=== PATIENT | female | born 1980 | race Caucasian/White ===

== ENCOUNTER 2018-05-21 17:55 | Emergency (ER) | payer OTHER, BC ==
[~2018-05-21] VITALS: Ht 175.3 cm; Wt 112.0 kg
[~2018-05-21 17:55] MED LIST: AMOXICILLIN500 MG OR; BENADRYL 50MG C50 MG PO; CORTISPORIN OTI10 M1 OT; FLEXERIL PO; LORTAB 5 OR; MEDDOSEPAK PO; NAPROSYN500 MG PO; NO HOME MEDS; PEPCID20 MG PO
[2018-05-21] MEDS ORDERED: MOBIC7.5 M1 PO (18:04)
[2018-05-21] MEDS ORDERED: MOTRIN400 MG PO (18:16)
[2018-05-21 19:06] VITALS: BP 144/77
[2018-05-21] MEDS ORDERED: NAPROSYN500 MG PO (19:07)
== END 2018-05-21 19:24 | disposition home or self-care (01) | DRG 605 ==
LOC: ED 17:55
DX: S80.212A Abrasion, left knee, initial encounter (principal); S90.01XA Contusion of right ankle, initial encounter; S39.012A Strain of muscle, fascia and tendon of lower back, initial encounter; W01.0XXA Fall on same level from slipping, tripping and stumbling without subsequent striking against object, initial encounter; Y93.89 Activity, other specified; Y92.89 Other specified places as the place of occurrence of the external cause; Y99.0 Civilian activity done for income or pay

== ENCOUNTER 2018-06-01 09:48 | Emergency (ER) | payer BC ==
[~2018-06-01] VITALS: Ht 175.3 cm; Wt 112.7 kg
[~2018-06-01 09:48] MED LIST changes: +MOBIC7.5 M1 PO; +MOTRIN400 MG PO
[2018-06-01] MEDS ORDERED: PREDNISONE50 MG PO (10:21)
[2018-06-01] MEDS ORDERED: CEPHALEXIN500 MG PO (10:21)
[2018-06-01 10:48] VITALS: BP 127/81
== END 2018-06-01 10:49 | disposition home or self-care (01) | DRG 918 ==
LOC: ED 09:48
DX: T63.461A Toxic effect of venom of wasps, accidental (unintentional), initial encounter (principal); M79.89 Other specified soft tissue disorders

== ENCOUNTER 2019-01-01 22:39 | Emergency (ER) | payer BC ==
[~2019-01-01] VITALS: Ht 175.3 cm; Wt 113.6 kg
[~2019-01-01 22:39] MED LIST changes: +CEPHALEXIN500 MG PO; +PREDNISONE50 MG PO
[2019-01-01] MEDS ORDERED: NORVASC PO (22:49)
[2019-01-01] MEDS ORDERED: GABAPENTIN100 MG PO (22:49)
[2019-01-01 23:14] LABS: URINE BILIRUBIN - DIPSTICK NEGATIVE (NEGATIVE); URINE BLOOD DIPSTICK NEGATIVE (NEGATIVE); URINE COLOR YELLOW; URINE GLUCOSE - DIPSTICK NEGATIVE (NEGATIVE); URINE KETONE NEGATIVE (NEGATIVE); URINE LEUK ESTERASE NEGATIVE (Negative); URINE NITRITE - DIPSTICK NEGATIVE (Negative); URINE PROTEIN - DIPSTICK NEGATIVE (NEG-TRACE); URINE SPECIFIC GRAVITY >=1.030; URINE UROBILINOGEN - DIPSTICK 0.2 E.U./dL (0.2)
[2019-01-01 23:17] LABS: URINE CLARITY HAZY
[2019-01-02] MEDS ORDERED: AMOXICILLIN500 MG PO (00:01)
[2019-01-02 00:13] VITALS: BP 128/77
== END 2019-01-02 00:10 | disposition home or self-care (01) | DRG 153 ==
LOC: ED 22:39
PROVIDERS: Emergency Medicine
DX: H66.92 Otitis media, unspecified, left ear (principal); J06.9 Acute upper respiratory infection, unspecified; I10 Essential (primary) hypertension

== ENCOUNTER 2019-06-20 21:46 | Emergency (ER) | payer SELFPAY ==
[~2019-06-20] VITALS: Ht 175.3 cm; Wt 113.6 kg
[~2019-06-20 21:46] MED LIST changes: +AMOXICILLIN500 MG PO; +GABAPENTIN100 MG PO; +NORVASC PO
[2019-06-20 23:13] LABS: URINE BILIRUBIN - DIPSTICK NEGATIVE (NEGATIVE); URINE BLOOD DIPSTICK TRACE-INTACT (NEGATIVE); URINE COLOR YELLOW; URINE GLUCOSE - DIPSTICK NEGATIVE (NEGATIVE); URINE KETONE NEGATIVE (NEGATIVE); URINE LEUK ESTERASE NEGATIVE (NEGATIVE); URINE NITRITE - DIPSTICK NEGATIVE (Negative); URINE PROTEIN - DIPSTICK NEGATIVE (NEG-TRACE); URINE UROBILINOGEN - DIPSTICK 0.2 E.U./dL (0.2)
[2019-06-20] MEDS ORDERED: ULTRAM50 M1 PO (23:42)
[2019-06-20 23:50] VITALS: BP 129/82
== END 2019-06-20 23:50 | disposition home or self-care (01) | DRG 563 ==
LOC: ED 21:46
PROVIDERS: Emergency Medicine
DX: S53.402A Unspecified sprain of left elbow, initial encounter (principal); M79.672 Pain in left foot; I10 Essential (primary) hypertension; Y04.2XXA Assault by strike against or bumped into by another person, initial encounter; Y93.89 Activity, other specified

== ENCOUNTER 2024-11-24 02:15 | Emergency (ER) | payer BC ==
[~2024-11-24] VITALS: Ht 175.3 cm; Wt 99.0 kg
[2024-11-24] VITALS (9 sets, daily range): BP systolic 117–155; BP diastolic 71–88
[~2024-11-24 02:15] MED LIST changes: +ULTRAM50 M1 PO
[2024-11-24] MEDS ORDERED: ASPIRIN 81 MG/TAB PO ONE (02:25)
[2024-11-24] MEDS ORDERED: ONDANSETRON HCl 4 MG/2 ML SDV IV ONE (02:25)
[2024-11-24] MEDS ORDERED: MORPHINE SULFATE 4 MG/ML VIAL IV ONE (02:25)
[2024-11-24] MEDS ORDERED: NITROGLYCERIN 2% OINT UD 1 GM/PAK TD ONE (02:25)
[2024-11-24 02:48] LABS: BASO% 0.8 % (0-3); EOS% 2.7 % (0-8); HEMATOCRIT 37.3 % (37.0-47.0); HEMOGLOBIN 12.7 g/dl (12.0-16.0); LYMPH% 47.3 % (15-41); MEAN CELL VOLUME 85.2 fL CALC (80.0-100.0); MONO% 15.1 % (2-13); NEUT# 1.24 thou/uL (2.00-7.15); NEUT% 34.1 % (42-76); RED BLOOD COUNT 4.38 mill/uL (4.20-5.60); RED CELL DISTRI WIDTH 12.5 % (11.5-15.5)
[2024-11-24 02:55] LABS: ALBUMIN 3.8 g/dL (3.2-5.0); ALKALINE PHOSPHATASE 51 u/l (38-126); ANION GAP 13 (6-22 (CALC)); BUN 15 mg/dL (7-17); BUN/CREATININE RATIO 22 (12-20 (CALC)); CARBON DIOXIDE 23 mmol/l (22-30); CHLORIDE 107 mmol/l (95-108); CPK 84 u/l (30-135); CREATININE 0.7 mg/dL (0.5-1.0); ESTIMATED GFR 111 ML/MIN (>=90 (CALC)); LIPASE 62 u/l (23-300); POTASSIUM 3.7 mmol/l (3.5-5.1); SGOT/AST 31 u/l (14-36); SODIUM 139 mmol/l (137-146); TOTAL PROTEIN 6.8 g/dL (6.3-8.2)
[2024-11-24 02:59] LABS: BILIRUBIN, TOTAL 0.4 mg/dL (0.02-1.3)
[2024-11-24 03:02] LABS: D-DIMER 0.51 mg/L (0.19-0.60)
[2024-11-24 03:06] LABS: PROTHROMBIN TIME 10.4 SECONDS (9.0-12.5)
[2024-11-24 03:12] LABS: BETA-HCG, QUANT(RESULT NUMBER) 0 mIU/mL
[2024-11-24 05:26] LABS: URINE BILIRUBIN - DIPSTICK Negative (NEGATIVE); URINE BLOOD DIPSTICK Negative (NEGATIVE); URINE GLUCOSE - DIPSTICK Negative (NEGATIVE); URINE KETONE Negative (NEGATIVE); URINE LEUK ESTERASE Negative (NEGATIVE); URINE NITRITE - DIPSTICK Negative (Negative); URINE PROTEIN - DIPSTICK Trace mg/dL (NEG-TRACE); URINE SPECIFIC GRAVITY 1.025
[2024-11-24 05:27] LABS: URINE COLOR Yellow
== END 2024-11-24 07:01 | disposition home or self-care (01) | DRG 313 ==
LOC: ED 02:15
PROVIDERS: Internal Medicine
DX: R07.9 Chest pain, unspecified (principal); I10 Essential (primary) hypertension
CPT/HCPCS: J2405